=== PATIENT | female | born 1965 | race Caucasian/White ===

== ENCOUNTER 2023-01-06 19:29 | Emergency (ER) | payer OTHER, SELFPAY ==
[2023-01-06 19:35] VITALS: BMI 23.3
--- NOTE | 2023-01-06 19:42 | XRR_ITS ---
PROCEDURE INFORMATION: Exam: XR Left Forearm Exam date and time: 01/06/2023 7:56 PM Age: 57 years old Clinical indication: Injury or trauma; Fall; Blunt trauma (contusions or hematomas); Arm, lower; Left TECHNIQUE: Imaging protocol: Radiologic exam of the left forearm. Views: 2 views. COMPARISON: CR (UP EX, ) 01/06/2023 7:52 PM FINDINGS: Bones/joints: No acute fracture or dislocation. Remote posttraumatic changes of the ulnar styloid. Calcification/chondrocalcinosis of the triangular fibrocartilage. Soft tissues: Large soft tissue swelling within the proximal forearm. XR/XR forearm LT 2V [id number] IMPRESSION: 1. No acute osseous abnormality. 2. Large soft tissue swelling of the proximal forearm presumably representing hematoma in the setting of trauma.
--- NOTE | 2023-01-06 19:42 | XRR_ITS ---
PROCEDURE INFORMATION: Exam: XR Left Elbow Exam date and time: 01/06/2023 7:52 PM Age: 57 years old Clinical indication: Injury or trauma; Fall; Blunt trauma (contusions or hematomas); Elbow; Left TECHNIQUE: Imaging protocol: Radiologic exam of the left elbow. Views: 3 or more views. COMPARISON: CR (CHEST, ) 01/06/2023 7:48 PM FINDINGS: Bones/joints: No acute fracture or malalignment. Soft tissues: Large soft tissue swelling of the proximal forearm XR/XR elbow LT min 3V* [id number] IMPRESSION: 1. No acute fracture. 2. Large soft tissue swelling of the proximal forearm presumably representing hematoma in the setting of trauma.
--- NOTE | 2023-01-06 19:43 | W.ED.GENADLT ---
HPI - General Adult General: Chief complaint: Trauma Stated complaint: left arm pain Time Seen by Provider: 01/06/23 19:34 Source: patient and EMS Mode of arrival: EMS Limitations: no limitations History of Present Illness: 57-year-old female states that she was bucked off a horse roughly an hour ago states she landed on her left arm has a hematoma to her left forearm she has pain in her left forearm elbow and shoulder she also hit the left side of her face she has some mild pain in the face she denies hitting her head denies any loss conscious denies any neck pain. Associated symptoms: Deny chest pain, dyspnea, headache(s), nausea, rash or vomiting Review of Systems Const: Denies: fever(s) or chills Eyes: Denies: blurry vision or eye discomfort ENMT: Denies: throat pain or dental pain Card: Denies: chest pain Resp: Denies: dyspnea GI: Denies: abdominal pain, nausea, vomiting or diarrhea Musc: Reports: extremity pain; Denies: neck pain or back pain Skin/Breast: Denies: rash Neuro: Denies: headache(s) Physical Exam Const: COMMON NORMALS: no acute distress, patient oriented x3 and healthy appearing HENMT: COMMON NORMALS: normocephalic and atraumatic HEAD & SCALP: normocephalic and atraumatic OTHER: bruising to left side of face Eye: COMMON NORMALS: Equal, round and reactive pupils present and EOMs intact bilaterally PUPIL: Yes Equal, round and reactive pupils present Neck/C-Spine: COMMON NORMALS: full ROM and supple Chest: COMMONS NORMALS: normal inspection of the chest and normal palpation of entire chest wall Resp: COMMON NORMALS: normal respiratory effort, No retractions, No use of accessory muscles and clear to auscultation bilaterally AUSCULTATION: clear to auscultation bilaterally Cardio: COMMON NORMALS: regular rate, regular rhythm and No murmurs present (Cardio) RATE: regular rate RHYTHM: regular rhythm GI: COMMON NORMALS: Normal to inspection, nondistended, normoactive bowel sounds present, Soft to palpation, non-tender and no masses PALPATION: Yes Soft to palpation Extremity: NARRATIVE EXTREMITY EXAM: tenderness over left forearm and elbow with a hematoma Neuro: COMMON NORMALS: patient oriented x3, moves all extremities and no focal motor deficits Psych: COMMON NORMALS: mental status grossly normal, Normal thought process present and cooperative THOUGHT PROCESS: Normal thought process present Skin: COMMON NORMALS: no rashes or lesions noted and no wounds GENERAL SKIN EXAM: no rashes or lesions noted Course Vital Signs: Vital signs: Vital Signs Temperature 98.0 F 01/06/23 19:47 Pulse Rate 78 01/06/23 19:47 Respiratory Rate 16 01/06/23 19:47 Blood Pressure 127/84 01/06/23 19:47 Pulse Oximetry 95 01/06/23 19:47 Oxygen Delivery Me thod Room Air 01/06/23 19:47 MDM - General Adult Medical Decision Making Patient presents here with proximal humerus fracture from a fall. Other imaging here is normal. Patient is stable for discharge she is to follow-up with orthopedics return if worsening. Medical Records I reviewed the patient's medical records. Lab Data Radiology Impressions Elbow X-Ray 01/06/23 19:42 IMPRESSION: 1. No acute fracture. 2. Large soft tissue swelling of the proximal forearm presumably representing hematoma in the setting of trauma. Forearm X-Ray 01/06/23 19:42 IMPRESSION: 1. No acute osseous abnormality. 2. Large soft tissue swelling of the proximal forearm presumably representing hematoma in the setting of trauma. Face CT 01/06/23 19:45 IMPRESSION: 1. Left infraorbital cheek soft tissue swelling without associated acute maxillofacial fracture. 2. Asymmetric rounded soft tissue density in the left vallecula measuring 9 mm, recommend correlation with direct visualization to exclude soft tissue mass lesion. Shoulder X-Ray 01/06/23 19:45 IMPRESSION: Acute comminuted and mildly displaced proximal left humerus fracture through the surgical neck. All radiology interpretation(s) finalized by discharge Discharge Plan Discharge Patient Disposition: Home Clinical Impression: Closed fracture of neck of left humerus Condition: Stable Discharge Orders: Discharge ED (Routine); Ordered 01/06/23 Ordered By: Loly Zhang Discharge Diet: Advance as tolerated Discharge Activity: Resume usual activity Patient Instructions: Proximal Humerus Fracture (ED) Coding Level of Care Code ED Physician Intensivist for Catina Barnes
--- NOTE | 2023-01-06 19:45 | XRR_ITS ---
PROCEDURE INFORMATION: Exam: XR Left Shoulder Exam date and time: 01/06/2023 7:48 PM Age: 57 years old Clinical indication: Injury or trauma; Fall; Blunt trauma (contusions or hematomas); Shoulder; Left TECHNIQUE: Imaging protocol: Radiologic exam of the left shoulder. Views: 2 or more views. COMPARISON: No relevant prior studies available. FINDINGS: Bones/joints: Acute nondisplaced fracture of the left proximal humerus through the surgical neck with comminuted component extending through the greater tuberosity. No intra-articular extension. No dislocation. Soft tissues: Unremarkable. XR/XR shoulder LT min 2V* [id number] IMPRESSION: Acute comminuted and mildly displaced proximal left humerus fracture through the surgical neck.
--- NOTE | 2023-01-06 19:45 | CTR_ITS ---
PROCEDURE INFORMATION: Exam: CT Maxillofacial Without Contrast Exam date and time: 01/06/2023 8:11 PM Age: 57 years old Clinical indication: Face pain; Patient HX: Left cheekbone pain; Additional info: Fall TECHNIQUE: Imaging protocol: Computed tomography of the face without contrast. Radiation optimization: All CT scans at this facility use at least one of these dose optimization techniques: automated exposure control; mA and/or kV adjustment per patient size (includes targeted exams where dose is matched to clinical indication); or iterative reconstruction. REPORTING DATA: Count of CT and Cardiac NM exams in prior 12 months: This patient has received 0 known CTs and 0 known cardiac nuclear medicine studies in the 12 months prior to the current study. COMPARISON: No relevant prior studies available. RADIATION DOSE METRICS: Total DLP (mGy-cm): 675.68 FINDINGS: Orbital cavities: Unremarkable. Bones/joints: No acute fracture. Paranasal sinuses: Normal. No air-fluid levels. Soft tissues: Soft tissue swelling with subcutaneous stranding involving the left infraorbital cheek. Pharynx: Asymmetric rounded soft tissue density within the left vallecula measuring 9 mm on series 4, image 18. CT/CT facial bones wo con* [id number] IMPRESSION: 1. Left infraorbital cheek soft tissue swelling without associated acute maxillofacial fracture. 2. Asymmetric rounded soft tissue density in the left vallecula measuring 9 mm, recommend correlation with direct visualization to exclude soft tissue mass lesion.
[2023-01-06 19:47] VITALS: BP 127/84; PULSE 78; RESP 16; TEMP 36.7; O2SAT 95
[2023-01-06] MEDS: HYDROcodone-acetaminophen 5-325 mg Tablet 1 TAB PO (20:59)
[2023-01-06 22:16] VITALS: BP 125/82; PULSE 74; RESP 16; O2SAT 96
== END 2023-01-06 22:20 | disposition home or self-care (01) ==
PROVIDERS: Emergency Provider Emergency Medicine
DX: S42.212A Unspecified displaced fracture of surgical neck of left humerus, initial encounter for closed fracture (principal); S00.83XA Contusion of other part of head, initial encounter; V80.010A Animal-rider injured by fall from or being thrown from horse in noncollision accident, initial encounter
CPT/HCPCS: 70486; 73030; 73080; 73090; 99284